=== PATIENT | male | born 1970 | race Caucasian/White ===

== ENCOUNTER 2022-05-24 13:23 | Emergency (ER) | payer MEDICAID ==
[~2022-05-24] VITALS: Ht 167.6 cm; Wt 100.0 kg
[2022-05-24 14:03] LABS: BASOPHILS % 0.4 % (0.0-2.0); EOSINOPHILS % 0.3 % (0.0-5.0); HEMATOCRIT. 46.3 % (42.0-52.0); HEMOGLOBIN. 15.6 g/dL (14.0-18.0); LYMPHOCYTES % 13.1 % (20.0-50.0); MEAN CORPUSCULAR HEMOGLOBIN 30.4 pg (28.0-32.0); MEAN CORPUSCULAR VOLUME 90.6 fL (80.0-94.0); MEAN PLATELET VOLUME 9.3 fl (7.4-10.4); MONOCYTES % 3.6 % (2.0-8.0); NEUTROPHILS % 82.6 % (40.0-76.0); PLATELET 252 x1000/uL (130-400); RED BLOOD CELL COUNT 5.11 mill/uL (4.7-6.1)
[2022-05-24 14:14] LABS: CHLORIDE 101 mEq/L (98-107)
[2022-05-24] MEDS ORDERED: TETRACAINE 0.5% OPHTH DROPS 4ML BOTHEYE ONE (14:15)
[2022-05-24] MEDS ORDERED: FLUORESCEIN SODIUM 1MG/STRIP RIGHTEYE ONE (14:15)
[2022-05-24] MEDS ORDERED: LISI20TA31 MT (14:18)
[2022-05-24] MEDS ORDERED: AMLO10TA80 MT (14:18)
[2022-05-24] MEDS ORDERED: METF-414 MT (14:18)
[2022-05-24] MEDS ORDERED: GLIP5TAB12 MT (14:18)
[2022-05-24] MEDS ORDERED: AMLODIPINE 10MG TABLET PO ONE (16:15)
[2022-05-24] MEDS ORDERED: LISINOPRIL 20MG TABLET PO ONE (16:15)
[2022-05-24] MEDS ORDERED: FLUORESCEIN SODIUM 1MG/STRIP RIGHTEYE NR (16:30)
[2022-05-24] MEDS ORDERED: TETRACAINE 0.5% OPHTH DROPS 4ML BOTHEYE NR (16:30)
[2022-05-24] MEDS ORDERED: ACETAZOLAMIDE 500MG ER CAPSULE PO ONE (17:15)
[2022-05-24] MEDS ORDERED: BRIMONIDINE 0.2% OPHTH DROPS 5ML RIGHTEYE ONE (17:15)
[2022-05-24] MEDS ORDERED: CLONIDINE 0.1MG TABLET PO NR (18:30)
[2022-05-24] MEDS: CLONIDINE 0.2MG TABLET PO ONE ×2 (19:21→19:27)
[2022-05-24] MEDS: TIMOLOL MALEATE 0.5% OPHTH DROPS 5ML RIGHTEYE SCH (21:17)
[2022-05-24] MEDS: DORZOLAMIDE 2% OPHTH 10 ML BOTTLE RIGHTEYE SCH (22:46)
[2022-05-24] MEDS: PILOCARPINE HCL 2% OPHTH DROPS 15ML RIGHTEYE SCH (22:47)
[2022-05-25] MEDS: DORZOLAMIDE 2% OPHTH 10 ML BOTTLE RIGHTEYE SCH ×2 (06:06→14:19)
[2022-05-25] MEDS: PILOCARPINE HCL 2% OPHTH DROPS 15ML RIGHTEYE SCH ×2 (06:06→14:19)
[2022-05-25 07:31] LABS: CLARITY URINE CLEAR (CLEAR); COLOR URINE YELLOW (YELLOW); KETONES URINE NEGATIVE (NEGATIVE); LEUKOCYTE ESTERASE URINE NEGATIVE (NEGATIVE); NITRITE URINE NEGATIVE (NEGATIVE); OCCULT BLOOD URINE NEGATIVE (NEGATIVE); PROTEIN URINE 4+ (NEGATIVE); SPECIFIC GRAVITY URINE 1.019 (1.005-1.030)
[2022-05-25] MEDS: TIMOLOL MALEATE 0.5% OPHTH DROPS 5ML RIGHTEYE SCH (09:25)
[2022-05-25] MEDS ORDERED: LISINOPRIL 10MG TABLET PO NR (14:30)
[2022-05-25] MEDS ORDERED: LISINOPRIL 20MG TABLET PO ONE (14:30)
[2022-05-25] MEDS ORDERED: LISINOPRIL 5MG TABLET PO NR (14:30)
[2022-05-25] MEDS ORDERED: AMLODIPINE 10MG TABLET PO ONE (14:30)
[2022-05-25] MEDS ORDERED: AMLODIPINE 5MG TABLET PO NR (14:30)
[2022-05-25] MEDS ORDERED: HYDRALAZINE HCL 25MG TABLET PO NR (17:00)
[2022-05-25] MEDS ORDERED: HYDRALAZINE HCL 50MG TABLET PO ONE (17:00)
[2022-05-25 17:32] VITALS: BP 151/89
== END 2022-05-25 17:52 ==
LOC: ER 13:23
DX: H40.20X0 Unspecified primary angle-closure glaucoma, stage unspecified (principal); E11.65 Type 2 diabetes mellitus with hyperglycemia; I10 Essential (primary) hypertension; Z20.822 Contact with and (suspected) exposure to COVID-19
CPT/HCPCS: 36415; 70450; 80053; 81003; 82962; 85025; 87426; 99285; C9803